=== PATIENT | female | born 1995 | race Hispanic/Latino ===

== ENCOUNTER 2019-08-16 21:47 | Inpatient (IN) | payer OTHER, SELFPAY ==
[2019-08-16 22:21] VITALS: BMI 27.6
[2019-08-16] MEDS ORDERED: hydrALAZINE 20 MG/ML VIAL SLOW IVP PRN (22:40)
[2019-08-16] MEDS ORDERED: Lidocaine 1% (PF) 30 ML VIAL SC PRN (22:40)
[2019-08-16] MEDS ORDERED: Ondansetron PF 4 MG/2 ML Vial IVP PRN (22:40)
[2019-08-16] MEDS ORDERED: Acetaminophen 500 MG TAB PO PRN (22:40)
[2019-08-16] MEDS ORDERED: Methylergonovine 0.2 MG/ML VIAL IM PRN (22:40)
[2019-08-16] MEDS ORDERED: HYDROcodone/Acetaminophen 5/325 mg Tablet PO PRN ×2 (22:40)
[2019-08-16] MEDS ORDERED: Ibuprofen 800 MG TAB PO PRN (22:40)
[2019-08-16] MEDS ORDERED: Butorphanol Tartrate 1 MG/ML VIAL SLOW IVP PRN (22:40)
[2019-08-16] MEDS ORDERED: Promethazine HCl 25 MG/ML VIAL IM PRN (22:40)
[2019-08-16] MEDS ORDERED: Carboprost 250 MCG/ML AMP IM PRN (22:40)
[2019-08-16] MEDS ORDERED: Diphenoxylate HCl/Atropine Tablet PO PRN ×2 (22:40)
[2019-08-16] MEDS: Lactated Ringer's 1,000 ML IV SCH (22:45)
[2019-08-16 23:13] LABS: Hemoglobin 10.2 g/dL (12.0-16.0); Mean Corpuscular HGB CONC 34.2 g/dL (32.0-36.0); Mean Corpuscular Hemoglobin 27.1 pg (27.0-31.0); Mean Corpuscular Volume 79.1 fL (78.0-98.0); Platelet Count 273 thou/uL (130-400); RBC Distribution Width 14.2 % (11.5-14.5); Red Blood Cell (RBC) Count 3.79 mill/uL (4.20-5.40); White Blood Cell (WBC) Count 13.2 thou/uL (4.8-10.8)
[2019-08-16 23:53] LABS: Syphilis Antibody Nonreactive (Nonreactive); Syphilis Antibody Index 0.04 S/CO (<1.00 Non-Reactive)
[2019-08-16 23:54] LABS: HBSAg Index 0.17 S/CO (0-0.99); Hep B Surf Ag Non-Reactive S/CO (NonReactive)
[2019-08-17] MEDS ORDERED: Fentanyl 4 mcg/Bup 0.1% Cadd 100 ML ONE (00:27)
[2019-08-17] MEDS: Lactated Ringer's 1,000 ML IV SCH (01:22)
[2019-08-17] MEDS ORDERED: Acetaminophen 325 MG TAB PO PRN (01:43)
[2019-08-17] MEDS ORDERED: ePHEDrine/0.9% NaCl/PF SYRINGE 50 mg/10 ml SLOW IVP PRN (01:43)
[2019-08-17] MEDS ORDERED: Ondansetron PF 4 MG/2 ML Vial IVP PRN ×2 (01:43→05:48)
[2019-08-17] MEDS ORDERED: Promethazine HCl 25 MG/ML VIAL IM PRN ×2 (01:43→05:48)
[2019-08-17] MEDS ORDERED: Naloxone HCl 0.4 mg/ml Vial IVP PRN ×2 (01:43)
[2019-08-17] MEDS ORDERED: diphenhydrAMINE 50 MG/ML VIAL IVP PRN (01:43)
[2019-08-17] MEDS ORDERED: Lactated Ringer's 500 ML IV PRN (01:43)
[2019-08-17] MEDS ORDERED: Communication Order-Pharmacy FS SCH (01:45)
[2019-08-17] MEDS ORDERED: Fentanyl 4 mcg/Bupivacaine 0.1% Cassette 100 ML EPIDURAL SCH (01:45)
[2019-08-17] MEDS: NS / Oxytocin 40 units/1000ml 1,000 ML IV PRN ×2 (04:27→05:39)
[2019-08-17] MEDS ORDERED: Bisacodyl 10 MG SUPP PR PRN (05:48)
[2019-08-17] MEDS ORDERED: diphenhydrAMINE 25 MG CAP PO PRN (05:48)
[2019-08-17] MEDS ORDERED: Milk Of Magnesia 30 ML UDCUP PO PRN (05:48)
[2019-08-17] MEDS ORDERED: Lanolin Ointment 7 GM TUBE TOP PRN (05:48)
[2019-08-17] MEDS ORDERED: hydrALAZINE 20 MG/ML VIAL SLOW IVP PRN (05:48)
[2019-08-17] MEDS ORDERED: HYDROcodone/Acetaminophen 5/325 mg Tablet PO PRN ×2 (05:48)
[2019-08-17] MEDS ORDERED: NS / Oxytocin 40 units/1000ml 1,000 ML IV SCH (05:48)
[2019-08-17] MEDS ORDERED: FLU VACC QS2019-20(6MOS UP)/PF 60 MCG/0.5 ML SYRINGE IM ONE (09:00)
[2019-08-17] MEDS ORDERED: Adacel (T-DAP) 0.5 ML SYRINGE IM ONE (09:00)
[2019-08-17] MEDS: Ferrous Sulfate 325 MG TAB PO SCH ×2 (09:27→17:45)
[2019-08-17] MEDS: Prenatal Vitamin 1 TAB PO SCH (09:31)
[2019-08-17] MEDS: Ibuprofen 800 MG TAB PO SCH ×3 (09:31→20:29)
[2019-08-17] MEDS: Docusate Calcium (SURFAK) 240 MG CAP PO SCH ×2 (09:31→20:29)
[2019-08-18] MEDS: Ibuprofen 800 MG TAB PO SCH ×2 (06:45→13:32)
[2019-08-18] MEDS: Ferrous Sulfate 325 MG TAB PO SCH (08:08)
[2019-08-18 08:49] VITALS: BP 106/56; TEMP 97.9
[2019-08-18] MEDS: Prenatal Vitamin 1 TAB PO SCH (09:27)
[2019-08-18] MEDS: Docusate Calcium (SURFAK) 240 MG CAP PO SCH (09:27)
== END 2019-08-18 14:05 | disposition home or self-care (01) | DRG 807 ==
LOC: L&D/OP 21:47 → L&D 08-17 04:46 → 3SW 08-17 09:16
PROVIDERS: ADMIT Family Medicine; ATTEND Family Medicine
PROC: 10E0XZZ Delivery of Products of Conception, External Approach (ICD-10-PCS; principal; 2019-08-17)
PROC: 0HQ9XZZ Repair Perineum Skin, External Approach (ICD-10-PCS; 2019-08-17)
DX: O70.0 First degree perineal laceration during delivery (principal); Z37.0 Single live birth; Z3A.39 39 weeks gestation of pregnancy
CPT/HCPCS: 36415; 51702; 85027; 86780; 86850; 86900; 86901; 87340; 99285; J2001

== ENCOUNTER 2020-07-31 23:44 | Inpatient (IN) | payer OTHER ==
[2020-08-01 00:19] VITALS: BMI 27.9
[2020-08-01] MEDS ORDERED: Bupivacaine 0.5% 20 ML, fentaNYL Citrate/PF 400 MCG in Sodium Chloride 0.9% 72 ML EPIDURAL SCH (00:30)
[2020-08-01] MEDS ORDERED: DISCONTINUE ALL PREVIOUS NARCOTICS FS SCH (00:30)
[2020-08-01] MEDS ORDERED: HYDROcodone/Acetaminophen 5/325 mg Tablet PO PRN ×4 (00:36→07:08)
[2020-08-01] MEDS ORDERED: Penicillin G 2.5 MILL.units 2.5 MILL.UNITS in Premix Bag 1 BAG IVPB SCH (00:36)
[2020-08-01] MEDS ORDERED: Butorphanol Tartrate 1 MG/ML VIAL SLOW IVP PRN (00:36)
[2020-08-01] MEDS ORDERED: Promethazine HCl 25 MG/ML VIAL IM PRN ×3 (00:36→07:08)
[2020-08-01] MEDS ORDERED: Lactated Ringer's 1,000 ML IV SCH ×2 (00:36)
[2020-08-01] MEDS ORDERED: Ondansetron PF 4 MG/2 ML Vial IVP PRN ×3 (00:36→07:08)
[2020-08-01] MEDS ORDERED: hydrALAZINE 20 MG/ML VIAL SLOW IVP PRN ×2 (00:36→07:08)
[2020-08-01] MEDS ORDERED: Lidocaine 1% (PF) 30 ML VIAL SC PRN (00:36)
[2020-08-01] MEDS ORDERED: Ibuprofen 800 MG TAB PO PRN (00:36)
[2020-08-01] MEDS ORDERED: NS w/ Oxytocin 10 units 500 ML IV SCH (00:36)
[2020-08-01] MEDS ORDERED: Penicillin G Potassium 5 MILL.UNITS in Sodium Chloride 0.9% 100 ML IVPB SCH (01:00)
[2020-08-01 01:01] LABS: Hemoglobin 11.7 g/dL (12.0-16.0); Mean Corpuscular HGB CONC 33.6 g/dL (32.0-36.0); Mean Corpuscular Hemoglobin 27.4 pg (27.0-31.0); Mean Corpuscular Volume 81.6 fL (78.0-98.0); Mean Platelet Volume 9.3 fL (7.4-10.4); Platelet Count 261 thou/uL (130-400); RBC Distribution Width 15.5 % (11.5-14.5); Red Blood Cell (RBC) Count 4.26 mill/uL (4.20-5.40); White Blood Cell (WBC) Count 12.9 thou/uL (4.8-10.8)
[2020-08-01 01:41] LABS: HBSAg Index 0.16 S/CO (0-0.99); Hep B Surf Ag Non-Reactive S/CO (NonReactive)
[2020-08-01] MEDS ORDERED: Lactated Ringer's 500 ML IV PRN (01:46)
[2020-08-01] MEDS ORDERED: ePHEDrine 50 MG/ML VIAL SLOW IVP PRN (01:46)
[2020-08-01] MEDS ORDERED: Acetaminophen 325 MG TAB PO PRN (01:46)
[2020-08-01] MEDS ORDERED: Naloxone HCl 0.4 mg/ml Vial IVP PRN ×2 (01:46)
[2020-08-01] MEDS ORDERED: diphenhydrAMINE 50 MG/ML VIAL IVP PRN (01:46)
[2020-08-01] MEDS ORDERED: Fentanyl 4 mcg/Bupivacaine 0.1% Cassette 100 ML EPIDURAL SCH (02:00)
[2020-08-01] MEDS ORDERED: Communication Order-Pharmacy FS SCH (02:00)
[2020-08-01 04:42] LABS: Syphilis Antibody Nonreactive (Nonreactive); Syphilis Antibody Index 0.03 S/CO (<1.00 Non-Reactive)
[2020-08-01] MEDS ORDERED: Penicillin G 2.5 MILL.units 50 ML IVPB SCH (05:00)
[2020-08-01] MEDS: NS / Oxytocin 40 units/1000ml 1,000 ML IV PRN ×2 (05:15→06:27)
--- NOTE | 2020-08-01 05:44 | HP ---
TIME OF SERVICE: 0030 hours. PRESENTING COMPLAINT: Contractions. REASON FOR ADMISSION: Active labor at 38 weeks. HISTORY OF PRESENT ILLNESS: Ms. Mann is a 25-year-old, 3, para [address], [address] Dr[address] Hola Jean at [facility]. He is out of town and checked up to the OB hospitalist. She presents complaining of contractions for 2 hours, is noted to be 5 cm with contractions q.3 minutes, is admitted for labor. [employer] HISTORY: x2. O positive, antibody negative. Pap negative. Rubella immune. VDRL nonreactive. Hepatitis B, GC, chlamydia negative. Group B strep not available on the record. EED based on early ultrasound is 07/2020, placed the patient at 38 and 39 weeks' gestation. PAST MEDICAL HISTORY: None. PAST SURGICAL HISTORY: None. ALLERGIES: DENIES. MEDICATIONS: vitamins. SOCIAL HISTORY: Denies tobacco, alcohol, or IV drug use. FAMILY HISTORY: Noncontributory. REVIEW OF SYSTEMS: Noncontributory. PHYSICAL EXAMINATION: GENERAL: female, mild distress. VITAL SIGNS: Temperature 98.5, respirations 18, and blood pressure 118/72. HEENT: Within normal limits. LUNGS: Clear to auscultation bilaterally. HEART: Regular rate and rhythm. ABDOMEN: Soft in between contractions. Fundal height 37. FHTs 140s. : Vulva without lesions. Vagina without discharge. Cervix 5, 90, -1, cephalic, bag of water intact. EXTREMITIES: No clubbing, cyanosis, or edema. IMPRESSION: Active labor at term 38 to 39 weeks' gestation, multiparas patient. PLAN: Admission epidural. Anticipate spontaneous vaginal delivery. Job ID: [id number]
--- NOTE | 2020-08-01 06:25 | OP ---
DATE OF PROCEDURE: 08/01/2020 TIME OF SERVICE: 5:15. PREOPERATIVE DIAGNOSES: 39 weeks gestation, term labor, coronavirus disease test pending. POSTOPERATIVE DIAGNOSES: 39 weeks gestation, term labor, coronavirus disease test pending. PROCEDURES PERFORMED: Spontaneous vaginal delivery at approximately , vigorous male without lacerations. ANESTHESIA: Epidural. ESTIMATED BLOOD LOSS: QBL pending, but EBL less than 250 mL. SPECIMENS REMOVED: Placenta intact, three-vessel cord. OPERATIVE FINDINGS: 1. Vigorous male infant delivered without nuchal cord and without complication. 2. Apgars and weight are pending. 3. Intact placenta. No lacerations. DISPOSITION: Routine postdelivery recovery. DESCRIPTION OF PROCEDURE: Presented to the room and patient was on the perineum. Patient over one contraction pushed once and delivered in a controlled manner over intact perineum. The infant was placed on the maternal abdomen. Delayed cord clamping carried out. Cord clamped and cut. Usual cord blood sample obtained. Placenta delivered spontaneously within 90 seconds. Inspection of the perineum revealed no lacerations. The fundus was firm with minimal lochia and patient will be entered into routine care. Job ID: [id number]
[2020-08-01] MEDS ORDERED: Milk Of Magnesia 30 ML UDCUP PO PRN (07:08)
[2020-08-01] MEDS ORDERED: Bisacodyl 10 MG SUPP PR PRN (07:08)
[2020-08-01] MEDS ORDERED: diphenhydrAMINE 25 MG CAP PO PRN (07:08)
[2020-08-01] MEDS ORDERED: NS / Oxytocin 40 units/1000ml 1,000 ML IV SCH (07:08)
[2020-08-01] MEDS ORDERED: Preparation H Ointment 28 GM TUBE PR PRN (07:08)
[2020-08-01] MEDS ORDERED: Adacel (T-DAP) 0.5 ML SYRINGE IM ONE (07:08)
[2020-08-01] MEDS ORDERED: Lanolin Ointment 7 GM TUBE TOP PRN (07:08)
[2020-08-01] MEDS ORDERED: Benzocaine-Menthol 82.5 ML CAN TOP PRN (07:08)
[2020-08-01 09:18] LABS: SARS-CoV-2 MS2 Positive; SARS-CoV-2 N Gene Negative; SARS-CoV-2 S Gene Negative; SARS-CoV-2 by NAA Not Detected (NotDetected); SARS-CoV-2 orf1ab Negative
[2020-08-01] MEDS: Ferrous Sulfate 325 MG TAB PO SCH ×2 (10:11→17:13)
[2020-08-01] MEDS: Ibuprofen 800 MG TAB PO SCH ×2 (10:12→16:15)
[2020-08-01] MEDS: Docusate Calcium (SURFAK) 240 MG CAP PO SCH (10:13)
[2020-08-01] MEDS: Prenatal Vitamin 1 TAB PO SCH (10:13)
[2020-08-02] MEDS: Ibuprofen 800 MG TAB PO SCH ×5 (00:10→22:48)
[2020-08-02] MEDS: Docusate Calcium (SURFAK) 240 MG CAP PO SCH ×3 (06:55→19:51)
--- NOTE | 2020-08-02 07:28 | PDOC.PP ---
Post Progress Note Post Day #: 2 Subjective: bonding well with infant breast feeding pain 5/10 and treated with motrin and tylenol voiding well. lochia amount of period PO intake tolerated: yes Flatus: yes Ambulation: yes Vital Signs (12 hours) Temp Pulse Resp BP Pulse Ox 08/02/20 04:00 98.1 F 64 18 102/60 08/01/20 20:00 98.0 F 66 18 95/57 L 98 Weight Weight 67.132 kg - Physical Examination General: NAD Cardiovascular: no m/r/g, RRR Respiratory: clear to auscultation bilaterally, non-labored breathing Abdominal: + bowel sounds, lochia, no distention, appropriately TTP Fundus firm & at: just below umbilicus Skin: no rash Neurological: no gross focal deficits Psychiatric: A&Ox3, normal affect Result Diagrams: 08/01/20 00:41 Additional Labs: Post Labs Hep Bs Antigen Non-Reactive S/CO (NonReactive) 08/01/20 00:38 Blood Type O POSITIVE 08/01/20 00:38 (1) Normal spontaneous vaginal delivery Code(s): O80 - ENCOUNTER FOR FULL-TERM UNCOMPLICATED DELIVERY Status: Acute - Assessment/Plan 25 y/o PP day #2 from VSS QBL 43 planning d/c home today with motrin and tylenol, with ice pack and heating pads for pain control f/u with PCP Dr. Jean in office in 2 weeks pt experienced a nml pp course with no complications. Dispo: d/c home today discussed d/c plan with Dr. Church, laborist who is in agreement with plan.
[2020-08-02] MEDS: Ferrous Sulfate 325 MG TAB PO SCH ×3 (09:39→19:51)
[2020-08-02] MEDS: Prenatal Vitamin 1 TAB PO SCH (09:39)
[2020-08-02 20:24] VITALS: TEMP 98.7
[2020-08-03] MEDS ORDERED: Ibuprofen 800 MG TAB PO SCH (06:00)
[2020-08-03] MEDS: Ferrous Sulfate 325 MG TAB PO SCH (08:54)
[2020-08-03] MEDS: Docusate Calcium (SURFAK) 240 MG CAP PO SCH (08:55)
[2020-08-03] MEDS: Prenatal Vitamin 1 TAB PO SCH (08:55)
[2020-08-03 09:43] VITALS: BP 91/47
== END 2020-08-03 12:50 | disposition home or self-care (01) | DRG 807 ==
LOC: L&D/OP 23:44 → L&D 08-01 00:36 → 3SW 08-01 09:29
PROVIDERS: ADMIT Obstetrics & Gynecology; ATTEND Obstetrics & Gynecology
PROC: 10E0XZZ Delivery of Products of Conception, External Approach (ICD-10-PCS; principal; 2020-08-01)
DX: O80 Encounter for full-term uncomplicated delivery (principal); Z37.0 Single live birth; Z3A.39 39 weeks gestation of pregnancy; Z20.828 Contact with and (suspected) exposure to other viral communicable diseases; Z23 Encounter for immunization
CPT/HCPCS: 51702; 85027; 86780; 86850; 86900; 86901; 87340; 87635; 99285; J2540; J3010; J3490; U0003